=== PATIENT | male | born 1960 | race Caucasian/White ===

== ENCOUNTER 2017-11-22 12:28 | Emergency (ER) | payer SELFPAY ==
[2017-11-22] MEDS ORDERED: Dexamethasone 4 mg/ml Vial ONE (12:50)
[2017-11-22] MEDS ORDERED: diphenhydrAMINE 25 MG CAP ONE (12:50)
== END 2017-11-22 13:27 | disposition home or self-care (01) ==
LOC: NAV ERS 12:28
DX: L25.5 Unspecified contact dermatitis due to plants, except food (principal); I11.0 Hypertensive heart disease with heart failure; I50.9 Heart failure, unspecified; F41.9 Anxiety disorder, unspecified; F17.210 Nicotine dependence, cigarettes, uncomplicated
CPT/HCPCS: 96372; J1100

== ENCOUNTER 2018-03-01 15:14 | Emergency (ER) | payer SELFPAY | END 2018-03-01 16:24 | disposition home or self-care (01) | LOC: NAV ERS 15:14 | DX: J20.9 Acute bronchitis, unspecified (principal); I25.2 Old myocardial infarction; I11.0 Hypertensive heart disease with heart failure; I50.9 Heart failure, unspecified; F41.9 Anxiety disorder, unspecified; F17.210 Nicotine dependence, cigarettes, uncomplicated; Z79.899 Other long term (current) drug therapy | CPT/HCPCS: 99283; J7620 ==